=== PATIENT | male | born 1935 | race Caucasian/White ===

== ENCOUNTER 2017-03-23 20:15 | Inpatient (IN) | payer OTHER ==
--- NOTE | 2017-03-23 20:19 | EDPHY ---
HPI/HX/ROS/PE/MDM Narrative: CHIEF COMPLAINT: Altered mental status. HISTORY OF PRESENT ILLNESS: This patient is an 81 year old male with history of cognitive communication deficits and muscle weakness arriving via EMS from [facility] for evaluation of altered mental status. He has been feeling poorly for several days, but staff noted an abrupt decline in his mental status and summoned EMS. Paramedics arrived about 20 minutes following the onset of his altered mental status. Per EMS, oxygen saturation on room air was 60%. Patient has DNR paperwork present. He was recently referred to hospice care, but has not begun this yet. HPI primarily obtained via EMS report. Further HPI unobtainable due to patient presentation. REVIEW OF SYSTEMS: Unable to assess due to patient presentation. PAST MEDICAL HISTORY: 1. Cognitive communication deficit. 2. Muscle weakness 3. Dysphasia 4. Gait / mobility difficulty SOCIAL HISTORY: Lives at [facility]. Patient was admitted to [facility] on March 15. VITAL SIGNS: Reviewed by me. Axillary temperature 40. HR 114. RR 50. BP 102/64. GENERAL: Ill-appearing, general tremors, nonverbal response to basic commands, listing leftward. HEENT: Atraumatic. Eyes: No icterus, no injection. PERRL. Mouth: dry mucous membranes. No erythema or lesions. Neck: Appears to have discomfort when moving the neck. LUNGS: Tachypneic. Diffuse rhonchi. CARDIAC: Tachycardia. No rubs, murmurs or gallops. ABDOMEN: Soft, nontender, nondistended, bowel sounds normal. BACK: No CVA tenderness. EXTREMITIES: No trauma. No edema. Skin is mottled. NEURO: Patient will follow some simple commands such as squeezing fingers. No verbal response. General tremors, questionable clonus lower extremities. SKIN: Fingernail beds cyanotic bilaterally. PSYCHIATRIC: Unable to assess. Portions of this note were transcribed by a bilingual medical receptionist. I personally performed a history, physical exam, medical decision making, and confirmed accuracy of information the transcribed note. ED Course: 19:55 Met EMS on arrival. 12-LEAD EKG: Please see the full report in [facility]. My interpretation: Sinus tachycardia. ST depression in lateral leads. Axillary temperature 40. HR 114. RR 50. BP 102/64. Reviewed I-stat: sodium 153 , BUN 67, creatinine 1.9. Plan for CT head, chest x-ray, labs including CBC, chemistries, troponin, flu swab, lactic acid, Coag. Lactic acid 5.7. Severe Sepsis/Septic Shock Care Note The patient presents to the ED with pneumonia identified as an acute infection. The patient did have evidence of end-organ dysfunction and met criteria for severe sepsis. This condition was identified by myself at 2020. The patients vital signs are 102/64, 114, 40 degrees axillary, respiratory rate 44, O2 sat 80s on 6 L nasal cannula. The patient has a venous lactic acid performed within 3 hours of the identification of severe sepsis which was found to be 5.7. The patient has blood cultures drawn. Patient received no antibiotics per his MOST form. Please see the discussion below. The initial lactate was elevated. Lactic was not rechecked the as the patient is comfort care only. Please see the discussion below. The patient also met criteria for septic shock because of lactic acid of 5.7. The patient received a 30 mL/kg bolus within 3 hours. After this intervention, the patients hypotension did persist. Patient was not started on any pressors secondary to his advanced directives. Focused examination demonstrated 82/66, heart rate of 60, respiratory rate 32, diffuse rhonchi, tachycardic rate, patient's troponin is elevated at 0.057, sluggish capillary refill, cyanotic nail beds, thready pulse, skin is cool and mottled. The patient was admitted to medical-surgical bed for comfort care. 21:00 Reviewed patient's MOST form. Antibiotic therapy is not indicated, comfort measures only. We are attempting to contact the patient's daughter for additional discussion of interventions. 213: Patient's , 2 daughters, and son-in-law present to the emergency department. I held a long conversation with them, nurse Gracie was also in the room, and discussed at length the patient's condition, as well as his advance directives. We discussed the fact that he was hypotensive, becoming bradycardic, febrile, and respiratory failure, requiring significant oxygen, the pneumonia on his chest x-ray, elevated troponin in the implications of that , labs demonstrate significant dehydration, renal failure and the implications of that, as well as potential urinary tract infection. We discussed the patient 's very grave prognosis. We discussed the most form which had indicated comfort care only. Patient's is concerned that we will not be giving him antibiotics. Decision was eventually reach that the patient will be admitted to the hospital, on medical-surgical floor, with IV antibiotics. Per the patient's wishes as expressed from the family and , the patient should be do not intubate, do not resuscitate, no pressors,, and no advanced respiratory support such as BiPAP. 2200: I was notified by Gracie the nurse that the patient's family has changed their mind regarding antibiotics and requests no antibiotics. Patient's course discussed with Dr. Lopez. He will be admitted to medical -surgical bed. MDM: Differential diagnoses for the patient's symptom complex was considered including but not limited to multi lobar pneumonia, influenza, severe sepsis, septic shock, multiorgan failure, cardiac ischemia, respiratory failure, renal failure. Critical care time spent by me, Dr. Castellanos exclusively with this patient was 40 minutes, exclusive of PA time and exclusive of procedures. The organ system at risk was pulmonary, cardiac, and renal and I gave IV fluids, antibiotics, and held a long discussion with the patient's family regarding the patient's condition. Critical care time included obtaining history, performing a physical exam, bedside monitoring of interventions, collecting and interpreting tests and discussion with consultants but not including time spent performing procedures. - Data Points Imaging Results: Imaging Impressions Chest X-Ray 03/23/17 20:17 Impression: Suspect pneumonia superimposed upon airways disease. Head CT 03/23/17 20:18 Impression: 1. 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 2. Negative for hemorrhage or mass lesion. Results called and discussed with Jagruti Castellanos MD on 03/23/2017 at 21:33 Imaging: Discussed imaging studies w/ tree thinner Radiologist, I viewed and interpreted images myself Laboratory Results: Laboratory Results 03/23/17 20:00 03/23/17 20:00 03/23/17 03/23/17 03/23/17 20:25 20:25 20:25 WBC RBC Hgb Hct MCV MCH MCHC RDW Plt Count MPV Neut % (Auto) Lymph % (Auto) [place] % (Auto) Eos % (Auto) Baso % (Auto) Nucleat RBC Rel Count Absolute Neuts (auto) Absolute Lymphs (auto) Absolute Monos (auto) Absolute Eos (auto) Absolute Basos (auto) Absolute Nucleated RBC Immature Gran % Immature Gran # PT INR APTT ABG Lactic Acid Cancelled VBG Lactic Acid 5.7 mmol/L H mmol/L (0.7-2.1) Sodium Potassium Chloride Carbon Dioxide Anion Gap BUN Creatinine Estimated GFR Glucose Calcium Phosphorus Total Bilirubin Troponin I Urine Color Urine Appearance Urine pH Ur Specific [place] Urine Protein Urine Ketones Urine Blood Urine Nitrate Urine Bilirubin Urine Urobilinogen Ur Leukocyte Esterase Urine RBC Urine WBC Ur Epithelial Cells Urine Bacteria Urine Mucus Urine Glucose Nasal Influenza A PCR NEGATIVE FOR FLU A (NEGATIVE) Nasal Influenza B PCR NEGATIVE FOR FLU B (NEGATIVE) 03/23/17 03/23/17 03/23/17 20:05 20:00 20:00 WBC RBC Hgb Hct MCV MCH MCHC RDW Plt Count MPV Neut % (Auto) Lymph % (Auto) [place] % (Auto) Eos % (Auto) Baso % (Auto) Nucleat RBC Rel Count Absolute Neuts (auto) Absolute Lymphs (auto) Absolute Monos (auto) Absolute Eos (auto) Absolute Basos (auto) Absolute Nucleated RBC Immature Gran % Immature Gran # PT 16.6 SEC H SEC (12.0-15.0) INR 1.32 H (0.83-1.16) APTT 24.6 SEC SEC (23.0-38.0) ABG Lactic Acid VBG Lactic Acid Sodium 157 mEq/L H mEq/L (135-145) Potassium 5.1 mEq/L mEq/L (3.5-5.2) Chloride 113 mEq/L H mEq/L (97-110) Carbon Dioxide 24 mEq/l mEq/l (22-31) Anion Gap 20 mEq/L H mEq/L (8-16) BUN 53 mg/dL H mg/dL (7-23) Creatinine 1.9 mg/dL H mg/dL (0.7-1.3) Estimated GFR 34 Glucose 136 mg/dL H mg/dL (70-100) Calcium 10.7 mg/dL H mg/dL (8.5-10.4) Phosphorus 3.6 mg/dL mg/dL (2.5-4.5) Total Bilirubin 0.5 mg/dL mg/dL (0.1-1.4) Troponin I 0.057 ng/mL H ng/mL (0.000-0.034) Urine Color YELLOW Urine Appearance MODERATELY TURBID Urine pH 5.0 (5.0-7.5) Ur Specific [place] 1.017 (1.002-1.030) Urine Protein NEGATIVE (NEGATIVE) Urine Ketones NEGATIVE (NEGATIVE) Urine Blood 2+ H (NEGATIVE) Urine Nitrate NEGATIVE (NEGATIVE) Urine Bilirubin NEGATIVE (NEGATIVE) Urine Urobilinogen NEGATIVE EU EU (0.2-1.0) Ur Leukocyte Esterase TRACE H (NEGATIVE) Urine RBC 3-5 /hpf H /hpf (0-3) Urine WBC 10-15 /hpf H /hpf (0-3) Ur Epithelial Cells TRACE /lpf /lpf (NONE-1+) Urine Bacteria 2+ /hpf H /hpf (NONE SEEN) Urine Mucus 1+ /lpf /lpf (NONE-1+) Urine Glucose NEGATIVE (NEGATIVE) Nasal Influenza A PCR Nasal Influenza B PCR 03/23/17 20:00 WBC 15.94 10^3/uL H 10^3/uL (3.80-9.50) RBC 4.20 10^6/uL L 10^6/uL (4.40-6.38) Hgb 13.9 g/dL g/dL (13.7-17.5) Hct 42.6 % % (40.0-51.0) MCV 101.4 fL H fL (81.5-99.8) MCH 33.1 pg pg (27.9-34.1) MCHC 32.6 g/dL g/dL (32.4-36.7) RDW 12.7 % % (11.5-15.2) Plt Count 727 10^3/uL H 10^3/uL (150-400) MPV 9.5 fL fL (8.7-11.7) Neut % (Auto) 90.6 % H % (39.3-74.2) Lymph % (Auto) 4.5 % L % (15.0-45.0) [place] % (Auto) 4.0 % L % (4.5-13.0) Eos % (Auto) 0.0 % L % (0.6-7.6) Baso % (Auto) 0.3 % % (0.3-1.7) Nucleat RBC Rel Count 0.0 % % (0.0-0.2) Absolute Neuts (auto) 14.43 10^3/uL H 10^3/uL (1.70-6.50) Absolute Lymphs (auto) 0.72 10^3/uL L 10^3/uL (1.00-3.00) Absolute Monos (auto) 0.64 10^3/uL 10^3/uL (0.30-0.80) Absolute Eos (auto) 0.00 10^3/uL L 10^3/uL (0.03-0.40) Absolute Basos (auto) 0.05 10^3/uL 10^3/uL (0.02-0.10) Absolute Nucleated RBC 0.00 10^3/uL 10^3/uL (0-0.01) Immature Gran % 0.6 % % (0.0-1.1) Immature Gran # 0.10 10^3/uL 10^3/uL (0.00-0.10) PT INR APTT ABG Lactic Acid VBG Lactic Acid Sodium Potassium Chloride Carbon Dioxide Anion Gap BUN Creatinine Estimated GFR Glucose Calcium Phosphorus Total Bilirubin Troponin I Urine Color Urine Appearance Urine pH Ur Specific [place] Urine Protein Urine Ketones Urine Blood Urine Nitrate Urine Bilirubin Urine Urobilinogen Ur Leukocyte Esterase Urine RBC Urine WBC Ur Epithelial Cells Urine Bacteria Urine Mucus Urine Glucose Nasal Influenza A PCR Nasal Influenza B PCR Medications Given: Discontinued Medications Ertapenem (Invanz) 1 gm IVP EDNOW ONE PRN Reason: Protocol Stop: 03/23/17 20:40 Last Admin: 03/23/17 22:30 Dose: Not Given Sodium Chloride (Ns) 1,900 mls @ 3,800 mls/hr 30 ml/kg infuse over 30 min ( 1900 ml) IV EDNOW ONE PRN Reason: Protocol Stop: 03/23/17 20:56 Last Admin: 03/23/17 20:37 Dose: 1,900 mls Levofloxacin/Dextrose (Levaquin 750 Mg (Premix)) 150 mls @ 100 mls/hr IV EDNOW ONE PRN Reason: Protocol Stop: 03/23/17 22:08 Last Admin: 03/23/17 22:30 Dose: Not Given General Initial Vital Signs: Initial Vital Signs Temperature (C) 40.0 C H 03/23/17 20:17 Heart Rate 115 H 03/23/17 20:17 Respiratory Rate 48 H 03/23/17 20:17 Blood Pressure 102/64 03/23/17 20:17 O2 Sat (%) 95 03/23/17 20:17 O2 Delivery Mode Non-Rebreather Mask O2 (L/minute) 15 Allergies/Adverse Reactions: No Known Allergies Allergy (Unverified 03/23/17 20:28) Home Medications: Medication Instructions Recorded Aspirin [Aspirin 81mg (*)] 81 mg PO DAILY 03/23/17 Cholecalciferol Vit D3 [Vitamin D3 2,000 units PO DAILY 03/23/17 (*)] Haloperidol [Haldol 1 MG (*)] 1 mg PO Q12H PRN 03/23/17 Melatonin [Melatonin 3 MG (*)] 3 mg PO HS 03/23/17 Counce-3 Fatty Acids [Fish Oil 1000 1,000 mg PO DAILY 03/23/17 mg (*)] QUEtiapine FUMARATE [Seroquel 25 25 mg PO HS 03/23/17 mg (*)] Sennosides [Senokot] 1 tab PO DAILY PRN 03/23/17 Departure - Departure Disposition: [facility] In[facility] Acute Clinical Impression: Cardiac ischemia, Severe sepsis Respiratory failure Qualifiers: Chronicity: acute Respiratory failure complication: hypoxia Qualified Code(s): J96.01 - Acute respiratory failure with hypoxia Renal failure Qualifiers: Renal failure chronicity: acute Acute renal failure type: unspecified Qualified Code(s): N17.9 - Acute kidney failure, unspecified Condition: Critical Report Scribed for: Jagruti Castellanos Report Scribed by: Jessika Greenfield Date of Report: 03/23/17 Time of Report: 20:21
[2017-03-23] MEDS ORDERED: NS 1,900 ML IV ONE (20:27)
[2017-03-23 20:33] LABS: PLATELET COUNT 727 10^3/uL (150-400)
[2017-03-23] MEDS ORDERED: ERTAPENEM 1 GM VIAL IVP ONE (20:39)
[2017-03-23 20:42] LABS: INR 1.32 (0.83-1.16); PROTIME(PATIENT) 16.6 SEC (12.0-15.0)
[2017-03-23] MEDS ORDERED: ONDANSETRON DISINTEGRATING 4 MG TAB PO PRN (22:17)
[2017-03-23] MEDS ORDERED: ALBUTEROL 3 ML DEYVIAL IH PRN (22:17)
[2017-03-23] MEDS ORDERED: ONDANSETRON 4 MG/2 ML VIAL IVP PRN (22:17)
[2017-03-23] MEDS ORDERED: NS 1,000 ML IV SCH (22:30)
[2017-03-23] MEDS ORDERED: PIPERACILLIN/TAZO 3.375 GM/DEX 50 ML IV ONE (23:30)
[2017-03-24] MEDS ORDERED: VANCOMYCIN HCL/NORMAL SALINE 250 ML IV ONE
--- NOTE | 2017-03-24 02:03 | PDGENHP ---
History and Physical - Chief Complaint Lethargy - History of Present Illness 81 yo M w/ hx of dementia presents from [facility] with lethargy. Patient was in usual state of health until about 2 weeks ago when he was admitted to [facility] for evaluation of weakness. Per family that work-up was mostly unremarkable aside from diagnosis of dementia. He was discharged to [facility] for further care. Since about 1 week ago at [facility] patient began to show lethargy. Then on day prior to admission he also developed worsening confusion and cough. Upon arrival in the ED work-up was notable for hypoxia, hypotension, and laboratory evidence of severe sepsis, most likely 2/2 pneumonia. Patient has DNR , comfort measure wishes only. After long discussion with family it was decided to pursue care with antibiotics and fluids only and forego any escalation of care from that point (BIPAP, pressors, intubation, etc.). History Information - Allergies/Home Medication List Allergies/Adverse Reactions: No Known Allergies Allergy (Unverified 03/23/17 20:28) Home Medications: Aspirin [Aspirin 81mg (*)] 81 mg PO DAILY 03/23/17 [Last Taken 03/23/17] Cholecalciferol Vit D3 [Vitamin D3 (*)] 2,000 units PO DAILY 03/23/17 [Last Taken 03/23/17] Haloperidol [Haldol 1 MG (*)] 1 mg PO Q12H PRN 03/23/17 [Last Taken Unknown] Melatonin [Melatonin 3 MG (*)] 3 mg PO HS 03/23/17 [Last Taken 03/22/17] [place]-3 Fatty Acids [Fish Oil 1000 mg (*)] 1,000 mg PO DAILY 03/23/17 [Last Taken 03/23/17] QUEtiapine FUMARATE [Seroquel 25 mg (*)] 25 mg PO HS 03/23/17 [Last Taken Unknown] Sennosides [Senokot] 1 tab PO DAILY PRN 03/23/17 [Last Taken Unknown] I have personally reviewed and updated: family history, medical history - Past Medical History dementia - Family History Positive for: cancer - Social History Smoking Status: Former smoker Review of Systems Review of Systems: Unable to obtain due to mental status Physical Exam Physical Exam: Temp Pulse Resp BP Pulse Ox 37.4 C 63 20 89/56 L 94 03/24/17 00:04 03/24/17 00:04 03/24/17 00:04 03/24/17 00:04 03/24/17 00:04 O2 (L/minute) 15 Constitutional: not in pain, chronically ill appearing Eyes: PERRL, EOMI Ears, Nose, Mouth, Throat: no oral mucosal ulcers, dry mucous membranes Cardiovascular: regular rate and rhythym, systolic murmur Respiratory: reduced air movement, inspiratory crackles Gastrointestinal: normoactive bowel sounds, soft, non-tender abdomen Skin: warm, normal color Neurologic: CN II-XII Intact, other (A&Ox0) Psychiatric: encephalopathic Lab Data & Imaging Review 03/23/17 20:00 03/23/17 20:00 WBC 15.94 10^3/uL (3.80-9.50) H 03/23/17 20:00 RBC 4.20 10^6/uL (4.40-6.38) L 03/23/17 20:00 Hgb 13.9 g/dL (13.7-17.5) 03/23/17 20:00 Hct 42.6 % (40.0-51.0) 03/23/17 20:00 MCV 101.4 fL (81.5-99.8) H 03/23/17 20:00 MCH 33.1 pg (27.9-34.1) 03/23/17 20:00 MCHC 32.6 g/dL (32.4-36.7) 03/23/17 20:00 RDW 12.7 % (11.5-15.2) 03/23/17 20:00 Plt Count 727 10^3/uL (150-400) H 03/23/17 20:00 MPV 9.5 fL (8.7-11.7) 03/23/17 20:00 Neut % (Auto) 90.6 % (39.3-74.2) H 03/23/17 20:00 Lymph % (Auto) 4.5 % (15.0-45.0) L 03/23/17 20:00 [place] % (Auto) 4.0 % (4.5-13.0) L 03/23/17 20:00 Eos % (Auto) 0.0 % (0.6-7.6) L 03/23/17 20:00 Baso % (Auto) 0.3 % (0.3-1.7) 03/23/17 20:00 Nucleat RBC Rel Count 0.0 % (0.0-0.2) 03/23/17 20:00 Absolute Neuts (auto) 14.43 10^3/uL (1.70-6.50) H 03/23/17 20:00 Absolute Lymphs (auto) 0.72 10^3/uL (1.00-3.00) L 03/23/17 20:00 Absolute Monos (auto) 0.64 10^3/uL (0.30-0.80) 03/23/17 20:00 Absolute Eos (auto) 0.00 10^3/uL (0.03-0.40) L 03/23/17 20:00 Absolute Basos (auto) 0.05 10^3/uL (0.02-0.10) 03/23/17 20:00 Absolute Nucleated RBC 0.00 10^3/uL (0-0.01) 03/23/17 20:00 Immature Gran % 0.6 % (0.0-1.1) 03/23/17 20:00 Immature Gran # 0.10 10^3/uL (0.00-0.10) 03/23/17 20:00 PT 16.6 SEC (12.0-15.0) H 03/23/17 20:00 INR 1.32 (0.83-1.16) H 03/23/17 20:00 APTT 24.6 SEC (23.0-38.0) 03/23/17 20:00 ABG Lactic Acid Cancelled 03/23/17 20:25 VBG Lactic Acid 5.7 mmol/L (0.7-2.1) H 03/23/17 20:25 Sodium 157 mEq/L (135-145) H 03/23/17 20:00 Potassium 5.1 mEq/L (3.5-5.2) 03/23/17 20:00 Chloride 113 mEq/L (97-110) H 03/23/17 20:00 Carbon Dioxide 24 mEq/l (22-31) 03/23/17 20:00 Anion Gap 20 mEq/L (8-16) H 03/23/17 20:00 BUN 53 mg/dL (7-23) H 03/23/17 20:00 Creatinine 1.9 mg/dL (0.7-1.3) H 03/23/17 20:00 Estimated GFR 34 03/23/17 20:00 Glucose 136 mg/dL (70-100) H 03/23/17 20:00 Calcium 10.7 mg/dL (8.5-10.4) H 03/23/17 20:00 Phosphorus 3.6 mg/dL (2.5-4.5) 03/23/17 20:00 Total Bilirubin 0.5 mg/dL (0.1-1.4) 03/23/17 20:00 Troponin I 0.057 ng/mL (0.000-0.034) H 03/23/17 20:00 Urine Color YELLOW 03/23/17 20:05 Urine Appearance MODERATELY TURBID 03/23/17 20:05 Urine pH 5.0 (5.0-7.5) 03/23/17 20:05 Ur Specific [place] 1.017 (1.002-1.030) 03/23/17 20:05 Urine Protein NEGATIVE (NEGATIVE) 03/23/17 20: Urine Ketones NEGATIVE (NEGATIVE) 03/23/17 20:05 Urine Blood 2+ (NEGATIVE) H 03/23/17 20:05 Urine Nitrate NEGATIVE (NEGATIVE) 03/23/17 20:05 Urine Bilirubin NEGATIVE (NEGATIVE) 03/23/17 20:05 Urine Urobilinogen NEGATIVE EU (0.2-1.0) 03/23/17 20:05 Ur Leukocyte Esterase TRACE (NEGATIVE) H 03/23/17 20:05 Urine RBC 3-5 /hpf (0-3) H 03/23/17 20:05 Urine WBC 10-15 /hpf (0-3) H 03/23/17 20:05 Ur Epithelial Cells TRACE /lpf (NONE-1+) 03/23/17 20:05 Urine Bacteria 2+ /hpf (NONE SEEN) H 03/23/17 20:05 Urine Mucus 1+ /lpf (NONE-1+) 03/23/17 20:05 Urine Glucose NEGATIVE (NEGATIVE) 03/23/17 20:05 Nasal Influenza A PCR NEGATIVE FOR FLU A (NEGATIVE) 03/23/17 20:25 Nasal Influenza B PCR NEGATIVE FOR FLU B (NEGATIVE) 03/23/17 20:25 Imaging Review: Imaging Impressions Chest X-Ray 03/23/17 20:17 Impression: Suspect pneumonia superimposed upon airways disease. Head CT 03/23/17 20:18 Impression: 1. 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 2. Negative for hemorrhage or mass lesion. Results called and discussed with Jagruti Castellanos MD on 03/23/2017 at 21:33 Assessment & Plan Assessment: 81 yo M w/ dementia and DNR wishes presents with severe sepsis most likely 2/2 pneumonia. Plan: 1. Severe sepsis 2/2 pneumonia - Sepsis criteria present on admission per WBC, tachypnea, and T per geriatric standard. CXR notable for pneumonia in conjunction with cough and severe hypoxia. Lactate 5.7. Patient has DNR, comfort measures only wishes. After long discussion with family it was decided to pursue care with antibiotics and fluids only and forego any escalation of care from that point (BIPAP, pressors, intubation, etc.). Family is aware patient may not survive for long noting severity of illness. - Vanc/Zosyn for HCAP coverage noting recent hospitalization - S/p initial fluid bolus per sepsis protocol, continue w/ bolus PRN and mIVF - Blood cultures ordered 2. AHRF - 2/2 above, will not escalate to NIPPV or intubation per family wishes. Currently requiring 10 L via non-rebreather. 3. Acute encephalopathy - Most likely 2/2 above. Patient A&O x 0 on my evaluation. 4. MILAD - Unknown baseline, most likely 2/2 sepsis and hypovolemia. Monitor BMP after rehydration. 5. Hypernatremia - Poor PO intake and dehydration present. Will prioritize volume status over water balance noting severe sepsis and severity of illness. Trend BMP. 6. Elevated troponin - Suspect myocardial demand, will not trend as family does not wish to intervene. Diet - Regular pending swallow screen Ppx - SQH Code - DNR, will not escalate care beyond fluids and antibiotics Dispo - Admit to inpatient status for treatment of severe sepsis
[2017-03-24] MEDS: PIPERACILLIN/TAZO 3.375 GM/DEX 50 ML IV SCH ×3 (05:17→17:52)
[2017-03-24] MEDS ORDERED: HEPARIN 5,000 UNIT/0.5 ML SYR SC SCH (06:00)
[2017-03-24 06:05] LABS: PLATELET COUNT 522 10^3/uL (150-400)
[2017-03-24] MEDS ORDERED: D5W 1/2 NS 1,000 ML IV SCH (07:45)
[2017-03-24] MEDS ORDERED: SENNOSIDES 1 TAB PO PRN (11:19)
--- NOTE | 2017-03-24 11:36 | HOSPPROG ---
Hospitalist Progress Note Assessment/Plan: 81 yo M w dementia admitted w sepsis, L lingular pneumonia and now hypernatremia hypernatremia: present on admit, worsened by saline resuscitation. this was necessary given sepsis 1. alert but confused and unknown baseline, although dementia noted 2. start 1/2 ns at 75 and follow Na q 4 sepsis: source is likely lungs agree w vanc zosyn bp stabilized repeat lactate pneumonia: treat as HCAP abx as above AHRF: 2/2 pneumonia: wean o2 MILAD: pre renal resusctitated and follow heel wounds: present on admit wound care seeing proph: lmwh dispo: inpt code: dnr Subjective: cxr w L lingular pneumonia (interp by me) Objective: Vital Signs Temp Pulse Resp BP Pulse Ox 36.8 C 54 L 18 91/51 L 96 03/24/17 07:33 03/24/17 10:06 03/24/17 10:56 03/24/17 10:06 03/24/17 10:56 Laboratory Results 03/24/17 05:45 03/24/17 05:45 03/23/17 03/24/17 03/25/17 05:59 05:59 05:59 Intake Total 3750 Output Total 300 175 Balance 3450 -175 PT 16.6 SEC (12.0-15.0) H 03/23/17 20:00 INR 1.32 (0.83-1.16) H 03/23/17 20:00 - Physical Exam Constitutional: no apparent distress, appears nourished Eyes: PERRL, anicteric sclera Ears, Nose, Mouth, Throat: moist mucous membranes, hearing normal Cardiovascular: regular rate and rhythym, no murmur, rub, or gallop Respiratory: no respiratory distress, other (good air movement, crackles L lung base) Gastrointestinal: normoactive bowel sounds, soft, non-tender abdomen Genitourinary: No rojas in urethra Skin: warm, normal color, other (b/l heel skin breakdown R> L. POA) Musculoskeletal: full muscle strength Neurologic: other (alert but confused), No AAOx3 ICD10 Worksheet Patient Problems: Problems Problem Status Onset Cardiac ischemia Acute Renal failure Acute Respiratory failure Acute Severe sepsis Acute
[2017-03-24] MEDS: 1/2 NS 1,000 ML IV SCH (12:03)
--- NOTE | 2017-03-24 12:04 | CPEKG ---
Heart Rate: 103 RR Interval: 583 P-R Interval: 156 QRSD Interval: 110 QT Interval: 364 QTC Interval: 477 P [place]: 86 QRS [place]: 43 T Wave [place]: 96 EKG Severity - ABNORMAL ECG - EKG Impression: SINUS TACHYCARDIA EKG Impression: NONSPECIFIC INTRAVENTRICULAR CONDUCTION DELAY EKG Impression: ST DEPRESSION, CONSIDER ISCHEMIA, LAT LEADS Electronically Signed By: Pollo Ronquillo 24-Mar-2017 13:06:09
--- NOTE | 2017-03-24 12:41 | PDMN ---
Medical Necessity Medical necessity: est los>2mn for severe sepsis r/t PNA, w/elevated wbc, tachypnea, T 40, and severe hypoxia, acute heart failure, acute encephalopathy, MILAD, hypernatremia, and elevated troponin; admit for IVF, IV abx, O2@ 10L/NRB; comorbid dementia; per order and H&P 03/23/17
--- NOTE | 2017-03-24 12:45 | WOCRNPDOC ---
MILI Advanced Assessment Note - Skin Integrity Problem, Advanced Assess Left Heel Pressure Injury Dressing Type: Open to Air Other Dressing Type: Heel boots in place Integumentary Issue Intervention: Dressing Applied Tena Wound Tissue: Intact Wound Bed Color: Purple Wound Bed Constitution: Intact Serous Filled Blister Wound Edges: Well Defined Site Measurement - Head-to-Toe Length X Width X Depth (cm): 4x2.6xDTI Pressure Injury Stage: Deep Tissue Injury (DTI) Pressure Injury Present on Admit: Yes (MD aware) Skin Integrity Problem Comment: Patient with intact serous filled blister. Wound bed appears purple indicting presence of DTI. Have asked nursing to inform wound care if/when blister opens. For now, will continue to monitor how this wound evolves. Wound care will round again next week. Left Lateral Distal Foot Pressure Injury Dressing Type: Open to Air Tena Wound Tissue: Intact Wound Bed Color: Uriah Wound Bed Constitution: Intact Serous Filled Blister Wound Edges: Well Defined Site Measurement - Head-to-Toe Length X Width X Depth (cm): 3x1.3xblister Pressure Injury Stage: Stage 2 Pressure Injury Present on Admit: Yes (MD aware) Skin Integrity Problem Comment: Patient with small, intact serous filled blister. Wound bed appears pink indicting this is likely a stage 2 pressure injury. Have asked nursing to inform wound care if/when blister opens. For now, will continue to monitor how this wound evolves. Wound care will round again next week. Left Lateral Foot Pressure Injury Dressing Type: Open to Air Wound Bed Color: Uriah, Yellow Wound Bed Constitution: Intact Serous Filled Blister Wound Edges: Well Defined Site Measurement - Head-to-Toe Length X Width X Depth (cm): 1.9x2dvynbnqo Pressure Injury Stage: Stage 2 Pressure Injury Present on Admit: Yes Skin Integrity Problem Comment: Patient with small, intact serous filled blister. The darkened central portion of this wound indicates that it is a DTI. Will continue to monitor how this wound evolves. Wound care will round again next week. Left Lateral Ankle Pressure Injury Dressing Type: Open to Air Tena Wound Tissue: Intact Wound Bed Color: Purple, Red Wound Edges: Well Defined Site Measurement - Head-to-Toe Length X Width X Depth (cm): 2x1.4xDTI Pressure Injury Stage: Deep Tissue Injury (DTI) Pressure Injury Present on Admit: Yes (MD aware) Right Heel Pressure Injury Dressing Type: Open to Air Other Dressing Type: Heel boots in place Tena Wound Tissue: Intact Wound Bed Color: Purple Wound Bed Constitution: Intact Serous Filled Blister Wound Edges: Well Defined Site Measurement - Head-to-Toe Length X Width X Depth (cm): 9x5.5xDTI Pressure Injury Stage: Deep Tissue Injury (DTI) Pressure Injury Present on Admit: Yes (MD aware) Skin Integrity Problem Comment: Heel boots removed with assist from CHENCHO Bray ( [facility]). Patient with large, intact serous filled blister. Wound bed appears purple indicting presence of DTI. Have asked nursing to inform wound care if/ when blister opens. For now, will continue to monitor how this wound evolves. Wound care will round again next week.
--- NOTE | 2017-03-24 15:28 | ASMTCMCOM ---
CM Note CM Note Notes: Pt admitted from [facility] and will return there when ready for DC. Date Signed: 03/24/2017 03:27 PM Electronically Signed By:Leah Ramos LCSW
[2017-03-24] MEDS ORDERED: QUEtiapine FUMARATE 25 MG TAB PO SCH (21:00)
[2017-03-24] MEDS: HALOPERIDOL 1 MG TAB PO PRN (21:22)
[2017-03-25] MEDS: PIPERACILLIN/TAZO 3.375 GM/DEX 50 ML IV SCH ×4 (00:03→22:03)
[2017-03-25] MEDS ORDERED: VANCOMYCIN 750 MG in NS 150 ML IV SCH ×2 (01:00→08:30)
[2017-03-25] MEDS ORDERED: VANCOMYCIN 750 MG in D5W 150 ML IV SCH ×2 (01:00→08:30)
[2017-03-25] MEDS: 1/2 NS 1,000 ML IV SCH (06:24)
[2017-03-25] MEDS ORDERED: D5W 1,000 ML IV SCH ×2 (08:45→14:00)
[2017-03-25] MEDS: ENOXAPARIN 30 MG/0.3 ML SYR SC SCH (09:18)
--- NOTE | 2017-03-25 15:35 | HOSPPROG ---
Hospitalist Progress Note Assessment/Plan: 81 yo M w dementia admitted w sepsis, L lingular pneumonia and now hypernatremia hypernatremia: present on admit, worsened by saline resuscitation. this was necessary given sepsis 1. alert but confused and unknown baseline, although dementia noted suspect he has delirium as well given continued rise despite hypotonic fluid, renal consult obtained; appreciate input sepsis: source is likely lungs continue zosyn, dc vanc bp stabilized repeat lactate normalized pneumonia: treat as HCAP abx as above AHRF: 2/2 pneumonia: wean o2 MILAD: pre renal resusctitated and follow heel wounds: present on admit wound care seeing proph: lmwh dispo: inpt code: dnr Subjective: case d/w dr meng. Na continued to rise despite initiation of d5w Objective: Vital Signs Temp Pulse Resp BP Pulse Ox 36.6 C 58 L 16 113/55 L 94 03/25/17 12:00 03/25/17 12:00 03/25/17 12:00 03/25/17 12:00 03/25/17 12:00 Laboratory Results 03/24/17 05:45 03/24/17 03/25/17 03/26/17 05:59 05:59 05:59 Intake Total 3750 2231 Output Total 300 675 750 Balance 3450 1556 -750 PT 16.6 SEC (12.0-15.0) H 03/23/17 20:00 INR 1.32 (0.83-1.16) H 03/23/17 20:00 - Physical Exam Constitutional: no apparent distress, appears nourished Eyes: PERRL, anicteric sclera Ears, Nose, Mouth, Throat: moist mucous membranes, hearing normal Cardiovascular: regular rate and rhythym, no murmur, rub, or gallop Respiratory: no respiratory distress, rhonchi Gastrointestinal: normoactive bowel sounds, soft, non-tender abdomen Genitourinary: no bladder fullness, No rojas in urethra Skin: warm, normal color Neurologic: No AAOx3 Psychiatric: No interacting appropriately ICD10 Worksheet Patient Problems: Problems Problem Status Onset Cardiac ischemia Acute Renal failure Acute Respiratory failure Acute Severe sepsis Acute
[2017-03-25] MEDS: HALOPERIDOL 1 MG TAB PO PRN (16:10)
[2017-03-25] MEDS: ACETAMINOPHEN 325 MG TAB PO PRN (20:23)
--- NOTE | 2017-03-25 21:47 | GCON ---
[f rep st] CONSULTATION NEPHROLOGY CONSULTATION DATE OF CONSULTATION: 03/25/2017 REASON FOR CONSULTATION: Refractory hyponatremia, acute kidney injury. HISTORY OF PRESENT ILLNESS: This is a pleasant 81-year-old male with a past medical history signific ant for reactive airway disease, and peptic ulcer disease, who now presents with hyponatremia and acu te kidney injury. At this point, the patient has pretty significant dementia versus delirium, and he cannot provide an accurate history. History is obtained from the medical record, as well as the fam lizandro who is present at bedside. The patient had a recent admission to [facility] relating to weakness. During that admissio n, it was suggested that the patient was developing dementia. He was discharged to [facility]. H e became more lethargic, and then was admitted to [facility]. Since admission, the patient has had sepsis syndrome, acute kidney injury, and a diagnosis of pneumon ia. The patient's laboratory studies have been remarkable for a presenting sodium of 157, and a crea tinine of 1.9. Currently, his creatinine has improved down to 1.5, but his sodium level has continue d to be elevated, and is currently 162. He is normotensive, although, previously was hypotensive. H is current urine output shows that he is nonoliguric, but his urine output is not markedly elevated. The patient is on antibiotics for his potential pneumonia. The patient has received some D5W and some D5 half normal saline. In spite of this, his sodium is no t correcting and has actually gotten somewhat worse. His urinalysis has shown some white cells and r ed cells in a catheterized specimen. As related to the above findings, we are asked by Dr. Noonan to assist the patient's renal diagnosis and management. PAST MEDICAL HISTORY: 1. Reactive airway disease. 2. Peptic ulcer disease. SURGICAL HISTORY: None. CURRENT MEDICATIONS: Tylenol p.r.n., albuterol as needed, D5W 75 mL/hour, enoxaparin 30 mg subcu anand ly, Haldol as needed, Zosyn 3.375 mg q.6 hours, senna as prescribed, vancomycin as prescribed. FAMILY HISTORY: Noncontributory. SOCIAL HISTORY: The patient was born in [place], but has lived in [place] most of his life. He is m arried and has supportive family at bedside. 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 He on ly smoked a very short period of time. He does not drink alcohol. REVIEW OF SYSTEMS: This is difficult to obtain, and I am not sure it is reliable. He is denying any significant symptoms at the present time, including no shortness of breath, chest pain, or abdominal pain. He denies feeling thirsty in spite of a sodium of 162. PHYSICAL EXAMINATION: GENERAL: At time of exam, the patient is awake and alert. He is disoriented. VITAL SIGNS: Temperature 36.6, pulse 58, blood pressure 113/55. HEENT: Eyes: Sclerae are clear. Oropharynx clear. NECK: No jugular venous distention, lymphadenopathy, or thyromegaly. LUNGS: C lear to auscultation bilaterally. CARDIOVASCULAR: Regular rate and rhythm. No gallops or rubs. AB DOMEN: Soft and nontender. : Jacobo catheter in place. RECTAL: Deferred. EXTREMITIES: Bilater al heel guards in place. He has no lower extremity edema that I can detect. NEURO: No focal findin gs, but the patient is disoriented. LABORATORY STUDIES: White count 13.6, hematocrit 36.8, platelets 522. Sodium 162, potassium 4.1, bi carb 19, creatinine 1.5. IMPRESSION AND PLAN: 1. Hyponatremia. The patient has severe hyponatremia that has not corrected. Initially, he was lik luis alberto total body sodium depleted, with a relatively greater water deficit. I currently calculate his w ater deficit at approximately 4.8 L. At present, we have not had urine osmolality studies. For now, I will order urine chemistries. I do believe that he appears relatively volume depleted, and we grant l not add further sodium to his IV fluids. I will increase his D5W to 125 mL/hour, and we will check labs every 3 hours. I am concerned that he may develop some hyperglycemia that is going to create a n osmotic diuresis and make it more difficult to correct his water deficit. Based on initial laborat ory study returns, as well as his urine studies, we will determine whether to change him to D2.5W. I will place him on a limited carbohydrate diet. 2. Acute kidney injury. The patient's creatinine is slowly improving. I do not have a baseline, bu t he does not have chronic kidney disease in his medical history. 3. Pneumonia. The patient is on Zosyn. I will dose adjust for his GFR. PLAN OF CARE: I did review with the family that the patient does have a poor prognosis relating to h is lack of thirst and dementia. They appreciate this, and understand that this needs to factor into decision making. At present, they wish to continue with medical therapy and supportive care. It is hoped that with some improvement of the serum sodium, or potentially medications for his dementia, he may regain his thirst mechanism. At this point, no movement will be made toward a feeding tube. Thank you for allowing us to participate in this gentleman's care. We will continue to follow him cl osely with you. /[id number]/MODL
[2017-03-26] MEDS: HALOPERIDOL 1 MG TAB PO PRN (02:57)
[2017-03-26 03:50] LABS: PLATELET COUNT 497 10^3/uL (150-400)
[2017-03-26] MEDS ORDERED: D5W 1,000 ML IV SCH (05:05)
[2017-03-26] MEDS: PIPERACILLIN/TAZO 3.375 GM/DEX 50 ML IV SCH ×3 (05:16→21:16)
--- NOTE | 2017-03-26 08:44 | SOAPPROG ---
SOAP Progress Note Assessment/Plan: Assessment: 1. Hypernatremia Patient likely intially presented with a total body sodium deficit, accompanied by an even greater water deficit. He appears to have been adequately volume resuscitated, and as of yesterday, his water deficit was near 5L. This could be corrected safely over 3 days, to get to a sodium level of 140. His Uosm were near 550. This is not a strong water conservation response, but he does not appear to be having an osmotic diuresis, and he is not having an overtly hypotonic urine. Looking at his Urine volume the last 24 hours, and his Urine electrolytes, he is excreting about 900ml of electrolyte free water daily. He likely has further insensible losses of another 800ml daily. If given D5W at 150ml/hour, he should be on target to reach 140 in about 72 hours. I have increased his to 175 at present. I cannot explain his rise to 165 last night, unless he wasn't receiving his full volume of IVF prescribed. He now appears to be decreasing. Will continue at current rate and follow closely. I will discuss PICC line with team. 2. Plan of care As per my consultation. His hypernatremia and age carry a poor prognosis. It is reasonable to reassess when his Na level is better. Family also requests pharmacologic therapy for dementia. Plan: 03/26/17 08:35 Subjective: Disoriented Objective: Vital Signs Temp Pulse Resp BP Pulse Ox 36.8 C 59 L 18 109/61 98 03/26/17 03:13 03/26/17 03:13 03/26/17 03:13 03/26/17 03:13 03/26/17 03:13 Laboratory Results 03/26/17 03:00 03/26/17 06:45 03/25/17 03/26/17 03/27/17 05:59 05:59 05:59 Intake Total 2231 730 1275 Output Total 675 1400 Balance 1556 -670 1275 PT 16.6 SEC (12.0-15.0) H 03/23/17 20:00 INR 1.32 (0.83-1.16) H 03/23/17 20:00 Physical Exam - Physical Exam General Appearance: no apparent distress Respiratory: lungs clear Cardiac/Chest: regular rate, rhythm Male Genitalia: other (rojas) Extremities: normal inspection Neuro/Psych: cognition abnormalities, disoriented to person, disoriented to place, disoriented to time ICD10 Worksheet Patient Problems: Problems Problem Status Onset Cardiac ischemia Acute Renal failure Acute Respiratory failure Acute Severe sepsis Acute
[2017-03-26] MEDS ORDERED: D5W 1/4 NS 1,000 ML IV SCH (09:00)
--- NOTE | 2017-03-26 09:00 | SOAPPROG ---
SOAP Progress Note Assessment/Plan: Assessment: Addendum Pt's BP has been lower, and Cr remains 1.5. Will give some NaCL along with water. D5 1/4NS at 200ml/hour should still give total of 3600ml water/day. Will prescribe this. Objective: Vital Signs Temp Pulse Resp BP Pulse Ox 36.8 C 59 L 18 109/61 98 03/26/17 03:13 03/26/17 03:13 03/26/17 03:13 03/26/17 03:13 03/26/17 03:13 Laboratory Results 03/26/17 03:00 03/26/17 06:45 03/25/17 03/26/17 03/27/17 05:59 05:59 05:59 Intake Total 2231 730 1275 Output Total 675 1400 Balance 1556 -670 1275 PT 16.6 SEC (12.0-15.0) H 03/23/17 20:00 INR 1.32 (0.83-1.16) H 03/23/17 20:00 ICD10 Worksheet Patient Problems: Problems Problem Status Onset Cardiac ischemia Acute Renal failure Acute Respiratory failure Acute Severe sepsis Acute
[2017-03-26] MEDS ORDERED: POTASSIUM CL 20 MEQ TAB PO ONE (09:15)
[2017-03-26] MEDS: ENOXAPARIN 30 MG/0.3 ML SYR SC SCH (10:07)
--- NOTE | 2017-03-26 13:32 | HOSPPROG ---
Hospitalist Progress Note Assessment/Plan: 81 yo M w dementia admitted w sepsis, L lingular pneumonia and now hypernatremia # hypernatremia- 157 on admit, worsened by saline resuscitation (required for sepsis) -> 165 alert but very confused and unknown baseline, although dementia noted receiving hypotonic fluids - per nephrology down to 155 this am - holding IVF - rechecking this afternoon - pt taking little PO # sepsis- leukocytosis and fever at presentation - presumed source is pneumonia - s/p fluid resuscitation resolved - normalizing lactate - cont empiric antibiotics # Acute pneumonia- suspect HCAP- CXR (personally reviewed and interpreted) left sided infiltrate blood cultures NGTD - cont IV antibiotics # AHRF: 2/2 pneumonia - oxygen saturations 98% on 3L - work to wean O2 # MILAD -pre renal creatinine 1.9 -> 1.1 - cont to follow # acute Encephalopathy - suspect delirium- with dementia # heel wounds: present on admit - wound care following # proph: lmwh # dispo: inpt # code: dnr I have discussed the case with Dr. Cole - we will place a PICC today and continue correction with hypotonic fluids Subjective: doesnt report pain Objective: Vital Signs Temp Pulse Resp BP Pulse Ox 36.6 C 51 L 15 94/81 H 96 03/26/17 09:18 03/26/17 11:59 03/26/17 11:59 03/26/17 11:59 03/26/17 11:59 Laboratory Results 03/26/17 03:00 03/25/17 03/26/17 03/27/17 05:59 05:59 05:59 Intake Total 2231 730 1275 Output Total 675 1400 Balance 1556 -670 1275 PT 16.6 SEC (12.0-15.0) H 03/23/17 20:00 INR 1.32 (0.83-1.16) H 03/23/17 20:00 - Physical Exam Constitutional: chronically ill appearing Eyes: anicteric sclera Ears, Nose, Mouth, Throat: dry mucous membranes Cardiovascular: regular rate and rhythym Respiratory: no respiratory distress Gastrointestinal: normoactive bowel sounds, No tenderness Genitourinary: no bladder fullness Skin: warm Musculoskeletal: No asymmetric calves Neurologic: No AAOx3 Psychiatric: poor insight, poor judgement, poor memory Lymph, Heme, Immunologic: no cervical LAD ICD10 Worksheet Patient Problems: Problems Problem Status Onset Cardiac ischemia Acute Renal failure Acute Respiratory failure Acute Severe sepsis Acute
[2017-03-26] MEDS ORDERED: OLANZapine DISINTEGR 5 MG TAB PO ONE (14:11)
[2017-03-26] MEDS: D5W 1/4 NS 1,000 ML IV SCH (22:30)
[2017-03-27] MEDS: D5W 1/4 NS 1,000 ML IV SCH (04:26)
[2017-03-27] MEDS: PIPERACILLIN/TAZO 3.375 GM/DEX 50 ML IV SCH ×3 (06:11→21:49)
[2017-03-27 06:15] LABS: PLATELET COUNT 444 10^3/uL (150-400)
[2017-03-27] MEDS: ENOXAPARIN 30 MG/0.3 ML SYR SC SCH (09:23)
[2017-03-27] MEDS ORDERED: D5W 1/4 NS 1,000 ML IV SCH (09:30)
--- NOTE | 2017-03-27 09:34 | SOAPPROG ---
SOAP Progress Note Assessment/Plan: Assessment: 1. Hypernatremia We now have PICC line, and are getting more consistent IVF administration and blood draws. He likely is both total body sodium deplete, and originally had about a 5L water deficit. He is tolerating D51/4 NS. Will increase rate slightly. His Uosm are concentrated, although shy of the 1100mosm a younger person could generate. Some of this is age related. It is possible that he could benefit from DDAVP. I would plan on following him today, and potentially challenging with DDAVP this week. Subjective: Remains disoriented, unclear of baseline Objective: Vital Signs Temp Pulse Resp BP Pulse Ox 36.8 C 64 15 96/81 H 97 03/27/17 08:00 03/27/17 08:00 03/27/17 08:00 03/27/17 08:00 03/27/17 08:00 Laboratory Results 03/27/17 06:05 03/26/17 03/27/17 03/28/17 05:59 05:59 05:59 Intake Total 730 3325 Output Total 1400 1 Balance -670 3324 PT 16.6 SEC (12.0-15.0) H 03/23/17 20:00 INR 1.32 (0.83-1.16) H 03/23/17 20:00 Physical Exam - Physical Exam General Appearance: no apparent distress, cachetic Respiratory: lungs clear Cardiac/Chest: regular rate, rhythm Extremities: normal inspection Neuro/Psych: disoriented to person, disoriented to place, disoriented to time ICD10 Worksheet Patient Problems: Problems Problem Status Onset Cardiac ischemia Acute Renal failure Acute Respiratory failure Acute Severe sepsis Acute
[2017-03-27] MEDS ORDERED: OLANZapine DISINTEGR 5 MG TAB PO PRN (12:39)
--- NOTE | 2017-03-27 12:48 | HOSPPROG ---
Hospitalist Progress Note Assessment/Plan: 81 yo M w dementia admitted w sepsis, L lingular pneumonia and now hypernatremia # hypernatremia- 157 on admit, worsened by saline resuscitation (required for sepsis) -> 165 less alert today but not restless- placed a PICC yesterday receiving hypotonic fluids - per nephrology down to 154 this am - cont IVF per nephrology - rechecking Q3-6 per nephrology - nephrology considering DDAVP - pt continues taking almost nothing PO # sepsis- leukocytosis and fever at presentation - presumed source is pneumonia - s/p fluid resuscitation resolved - normalizing lactate - cont empiric antibiotics # Acute pneumonia- suspect HCAP- CXR (personally reviewed and interpreted) left sided infiltrate blood cultures remain NGTD - cont IV antibiotics day 05/28 # AHRF: 2/2 pneumonia - oxygen saturations 89-92% on RA - work to wean O2 # MILAD -pre renal creatinine 1.9 -> 1.3 - cont to follow # acute Encephalopathy - suspect delirium- with dementia - prn Zydis for agitation # severe protein calorie malnutrition - BMI 19 - with progressive dementia pt has taken no meaningful nutrition intake overnight - certainly concerning reality in light of metabolic derangements- concerned pt will not be able to maintain corrections accomplished as inpatient - discussing hospice at dispo # heel wounds: present on admit - wound care following # proph: lmwh # dispo: inpt # code: dnr I have discussed the case with RN and CM - continue current care but consult Hospice for information on discharge Subjective: no events overnight Objective: Vital Signs Temp Pulse Resp BP Pulse Ox 36.8 C 64 15 96/81 H 97 03/27/17 08:00 03/27/17 08:00 03/27/17 08:00 03/27/17 08:00 03/27/17 08:00 Laboratory Results 03/27/17 06:05 03/27/17 12:00 03/26/17 03/27/17 03/28/17 05:59 05:59 05:59 Intake Total 730 3325 Output Total 1400 1 Balance -670 3324 PT 16.6 SEC (12.0-15.0) H 03/23/17 20:00 INR 1.32 (0.83-1.16) H 03/23/17 20:00 - Physical Exam Constitutional: cachectic Eyes: anicteric sclera Ears, Nose, Mouth, Throat: dry mucous membranes Cardiovascular: regular rate and rhythym, systolic murmur Respiratory: no respiratory distress Gastrointestinal: normoactive bowel sounds Genitourinary: no bladder fullness Skin: warm Musculoskeletal: No asymmetric calves Neurologic: No AAOx3 Psychiatric: not anxious Lymph, Heme, Immunologic: no cervical LAD ICD10 Worksheet Patient Problems: Problems Problem Status Onset Cardiac ischemia Acute Renal failure Acute Respiratory failure Acute Severe sepsis Acute
[2017-03-27] MEDS ORDERED: HALOPERIDOL LACT 5 MG/ML INJ IVP PRN (17:08)
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
[2017-03-27] MEDS ORDERED: POTASSIUM CL 10 MEQ TAB PO ONE (23:47)
[2017-03-28] MEDS: POTASSIUM Cl (KCl) 10 MEQ in D5W 100 ML IV SCH ×2 (00:23→01:36)
[2017-03-28] MEDS: PIPERACILLIN/TAZO 3.375 GM/DEX 50 ML IV SCH ×3 (05:18→23:04)
[2017-03-28 05:52] LABS: PLATELET COUNT 407 10^3/uL (150-400)
[2017-03-28] MEDS ORDERED: D5W 1/4 NS 1,000 ML IV SCH (07:15)
--- NOTE | 2017-03-28 08:05 | SOAPPROG ---
SOAP Progress Note Assessment/Plan: Assessment: 1)Hypernatremia -suspect due to poor intake in setting on end stage dementia -did require some IVNS initially given concerns for sepsis -Na now correcting appropriately, down to 150 today on D51/4 saline-- agree with decreasing rate to 100cc/hr -due to advanced dementia, he is at high risk for recurrence-- agree with recommendations for hospice and would not recommend feeding tube, etc 2)Severe dementia 3)pneumonia -blood Cx neg -on empirica antibiotics, wbc better I discussed with Dr Heather Marrero MD [facility] pager [phone] 03/28/17 09:54 Subjective: Did not sleep much last night due to agitation, confusion per sitter. Na down to 150 this am. Sleeping comfortably now. Objective: Vital Signs Temp Pulse Resp BP Pulse Ox 36.9 C 75 18 144/85 H 93 03/28/17 04:06 03/28/17 04:06 03/28/17 04:06 03/28/17 04:06 03/28/17 04:06 Laboratory Results 03/28/17 05:30 03/28/17 05:30 03/27/17 03/28/17 03/29/17 05:59 05:59 05:59 Intake Total 3325 Output Total 1 150 200 Balance 3324 -150 -200 PT 16.6 SEC (12.0-15.0) H 03/23/17 20:00 INR 1.32 (0.83-1.16) H 03/23/17 20:00 Physical Exam - Physical Exam General Appearance: no apparent distress Respiratory: lungs clear (poor effort) Cardiac/Chest: regular rate, rhythm Abdomen: non-tender, soft Extremities: other (no edema) Neuro/Psych: other (sleeping) ICD10 Worksheet Patient Problems: Problems Problem Status Onset Cardiac ischemia Acute Renal failure Acute Respiratory failure Acute Severe sepsis Acute
[2017-03-28] MEDS ORDERED: HALOPERIDOL LACT 5 MG/ML INJ IVP PRN (12:55)
--- NOTE | 2017-03-28 15:02 | HOSPPROG ---
Hospitalist Progress Note Assessment/Plan: 81 yo M w dementia admitted w sepsis, L lingular pneumonia and now hypernatremia # Acute agitation overnight - suspect 2/2 dementia and delirium - non-violent restains as needed - re-orientation and request for family bedside - haldol IV as last choice - zydis prn - has been very successful when he is willing to take # hypernatremia- 157 on admit, worsened by saline resuscitation (required for sepsis) -> 165 PICC placed receiving hypotonic fluids - per nephrology down to 150 this am - cont IVF per nephrology - rechecking per nephrology - pt continues taking almost nothing PO # sepsis- leukocytosis and fever at presentation - presumed source is pneumonia - s/p fluid resuscitation resolved - normalizing lactate - cont empiric antibiotics # Acute pneumonia- suspect HCAP- CXR (personally reviewed and interpreted) left sided infiltrate blood cultures remain NGTD - cont IV antibiotics day 06/27 # AHRF: 2/2 pneumonia - oxygen saturations 89-92% on RA - work to wean O2 # MILAD -pre renal creatinine 1.9 -> 1.3 - cont to follow # acute Encephalopathy - suspect delirium- with dementia - prn Zydis for agitation # severe protein calorie malnutrition - BMI 19 - with progressive dementia pt has taken no meaningful nutrition intake overnight - certainly concerning reality in light of metabolic derangements- concerned pt will not be able to maintain corrections accomplished as inpatient - discussing hospice at dispo # heel wounds: present on admit - wound care following # proph: lmwh # dispo: inpt # code: dnr I have discussed the case with RN working to re-orient with music and changes to environment - avoiding sedatives Subjective: aggressive with staff overnight Objective: Vital Signs Temp Pulse Resp BP Pulse Ox 37.5 C 67 28 H 118/95 H 95 03/28/17 13:53 03/28/17 12:00 03/28/17 12:00 03/28/17 12:00 03/28/17 12:00 Laboratory Results 03/28/17 05:30 03/28/17 05:30 03/27/17 03/28/17 03/29/17 05:59 05:59 05:59 Intake Total 3325 200 Output Total 1 150 200 Balance 3324 -150 0 PT 16.6 SEC (12.0-15.0) H 03/23/17 20:00 INR 1.32 (0.83-1.16) H 03/23/17 20:00 - Physical Exam Constitutional: cachectic Eyes: anicteric sclera Ears, Nose, Mouth, Throat: dry mucous membranes Cardiovascular: regular rate and rhythym Respiratory: no respiratory distress Gastrointestinal: normoactive bowel sounds Genitourinary: no bladder fullness Skin: warm Musculoskeletal: No asymmetric calves Neurologic: No AAOx3 Psychiatric: No agitated Lymph, Heme, Immunologic: no cervical LAD ICD10 Worksheet Patient Problems: Problems Problem Status Onset Cardiac ischemia Acute Renal failure Acute Respiratory failure Acute Severe sepsis Acute
--- NOTE | 2017-03-28 17:04 | ASMTCMCOM ---
CM Note CM Note Notes: Reviewed chart and discussed w/RN and Hospitalist, Dr Romero. Met w/pt's , Alexis, to follow up on facilities that had been discussed yesterday w/CM. She had not decided on a facility or looked at them and asked again about finding one close to her home. She said she could not afford [facility]. Alexis did seem open to the idea of her going to a facility and being followed by Hospice there but at same time whe was asking if he could stay here where he was getting good care. However, Dr Romero feels pt will soon be ready to dc once we have dc plan in place. I let pt's know that I would find out some more info and look at proximities of SNFs to their home. Notified pt's later with SNF info: [facility] and [facility] both about 15 minutes from her home according to [employer]. [facility] has semi priv bed available in both memory care (not locked) which is $370/d and LTC which is $353/d. Left voicemail at [facility] but according to CM notes yesterday semi priv rm available at $295/d. [facility] does not have bed availability. Did not discuss daily rates w/ over phone today so CM can do this tomorrow. She plans to be here. Date Signed: 03/28/2017 05:04 PM Electronically Signed By:Lupe Rubio RN
[2017-03-28] MEDS: ENOXAPARIN 30 MG/0.3 ML SYR SC SCH (18:33)
[2017-03-29] MEDS ORDERED: INSULIN LISPRO 100 UNIT/ML SC ONE (01:24)
[2017-03-29] MEDS: PIPERACILLIN/TAZO 3.375 GM/DEX 50 ML IV SCH ×2 (05:28→14:27)
[2017-03-29] MEDS: ENOXAPARIN 30 MG/0.3 ML SYR SC SCH (08:35)
[2017-03-29] MEDS: ACETAMINOPHEN 325 MG TAB PO PRN (08:36)
[2017-03-29] MEDS: ACETAMINOPHEN 650 MG SUPP PR PRN (11:20)
[2017-03-29] MEDS: D5W 1,000 ML IV SCH ×2 (12:15→22:55)
[2017-03-29] MEDS: ALTEPLASE 2 MG VIAL IVP PRN (14:27)
--- NOTE | 2017-03-29 14:37 | WOCRNPDOC ---
MILI Advanced Assessment Note - Skin Integrity Problem, Advanced Assess Right Heel Pressure Injury Dressing Type: Mepilex Other Dressing Type: netting, heel boots in place Dressing Description: Clean/Dry, Intact Exudate Amount: None Integumentary Issue Intervention: Visualized Under Dressing Tena Wound Tissue: Blanching, Intact Wound Bed Constitution: Intact Serous Filled Blister Wound Edges: Well Defined Site Measurement - Head-to-Toe Length X Width X Depth (cm): unable to measure due to patient agitation. Appear similar in size to my encounter on 03/24. Will attempt to measure again later this week. Pressure Injury Stage: Deep Tissue Injury (DTI) Pressure Injury Present on Admit: Yes Skin Integrity Problem Comment: Heel blister remains intact. Wound bed still with deep purple component. Wound care will round again later this week. Please inform wound care if this wound opens. Left Heel Pressure Injury Dressing Type: Mepilex Other Dressing Type: netting, heel boots in place Exudate Amount: None Integumentary Issue Intervention: Visualized Under Dressing Tena Wound Tissue: Intact Wound Bed Constitution: Intact Serous Filled Blister Wound Edges: Well Defined Site Measurement - Head-to-Toe Length X Width X Depth (cm): Patient agitated. No measurements obtained due to condition. Will attempt to measure later this week. Dimensions similar to measurements taken 03/24. Pressure Injury Stage: Deep Tissue Injury (DTI) Pressure Injury Present on Admit: Yes Skin Integrity Problem Comment: Heel boot removed with assist from CHENCHO Garcia ([facility]) . Blister remains intact with purple wound bed below. Please let wound care know if this blister opens. Wound care will round again later this week. Left Lateral Distal Foot Pressure Injury Dressing Type: Allevyn Life (cut) Exudate Amount: None Integumentary Issue Intervention: Visualized Under Dressing Tena Wound Tissue: Blanching Wound Bed Color: [place] (intact) Wound Edges: Well Defined Skin Integrity Problem Comment: It appears that the blister has been reabsorbed. Skin is pink, intact and blanching. Agree with keeping the area covered for now. Wound care will round again later this week.
--- NOTE | 2017-03-29 14:43 | ASMTCMCOM ---
CM Note CM Note Notes: I met with patient's daughters Abi and Soumya and Alexis today to discuss discharge planning. Although it appears that my colleagues in Case Management have spent a lot of time both discussing and researching options with the family, they still had some questions and concerns. Our conversation centered around the two options of home with hospice and private duty caregiving versus a [facility] facility with hospice. Interjected in this conversation were one daughter's outbursts about finances and feeling pressured to spend money on patient's care and 's insistence that we not pressure her until she's had time to think about things. I honored both of these perspectives and encouraged the family to think about the patient's best interests. I also assured them that whatever decision they made did not necessarily have to be permanent, and that hospice would serve as their best advocate/liason once patient was discharged from [facility]. Family left the meeting certain that they were going to pursue the facility/hospice route rather than taking patient home. just doesn't think she can handle him. They planned to visit [facility] and [facility]. They also planned to ask which hospice agencies each facility used. I sent referrals to each facility and will follow up based on family's wishes. We will need to sent a referral to a hospice agency [facility] once a facility is selected. Current CM Discharge plan: [facility] facility with hospice Date Signed: 03/29/2017 02:43 PM Electronically Signed By:Valentina Joaquin RN
--- NOTE | 2017-03-29 15:39 | HOSPPROG ---
Hospitalist Progress Note Assessment/Plan: 81 yo M w dementia admitted w sepsis, L lingular pneumonia and now hypernatremia # hypernatremia- 157 on admit, worsened by saline resuscitation (required for sepsis) -> 165 PICC placed receiving hypotonic fluids - per nephrology drip stopped overnight I suspect 2/2 spurious lab value - restarting D5W at 100 /hr - BMP in am # Acute Hypoglycemia - BS 33 - suspect 2/2 10 units of insulin overnight that may have been given for a spurious lab value - D5w gtt continued - BS normalized # Fever - intermittent - suspect may be related to aspiration with fluctuating alertness - completing antibiotics today for PNA - no additional empiric antibiotics # Acute agitation - suspect 2/2 dementia and delirium- improved in past 24 hours - non-violent restraints as needed - re-orientation and request for family bedside - haldol IV as last choice - zydis prn - has been very successful when he is willing to take # sepsis- leukocytosis and fever at presentation - presumed source is pneumonia - s/p fluid resuscitation resolved - normalizing lactate - cont empiric antibiotics # Acute pneumonia- suspect HCAP- CXR (personally reviewed and interpreted) left sided infiltrate- WBC 15->8 blood cultures remain NGTD -completing IV antibiotics today # AHRF: 2/2 pneumonia - oxygen saturations 93% on 2L - work to wean O2 # MILAD -pre renal creatinine 1.9 -> 1.4 - cont to follow # acute Encephalopathy - suspect delirium- with dementia - prn Zydis for agitation # severe protein calorie malnutrition - BMI 19 - with progressive dementia pt has taken no meaningful nutrition intake overnight - certainly concerning reality in light of metabolic derangements- concerned pt will not be able to maintain corrections accomplished as inpatient - discussing hospice at dispo # heel wounds: present on admit - wound care following # proph: lmwh # dispo: inpt # code: dnr I have discussed the case with CM - planning hospice dispo - family touring facilities today Subjective: no events overnight Objective: Vital Signs Temp Pulse Resp BP Pulse Ox 37.8 C 54 L 32 H 99/49 L 93 03/29/17 12:00 03/29/17 12:00 03/29/17 12:00 03/29/17 12:00 03/29/17 12:00 Laboratory Results 03/28/17 05:30 03/29/17 06:00 03/28/17 03/29/17 03/30/17 05:59 05:59 05:59 Intake Total 550 30 Output Total 150 200 Balance -150 350 30 PT 16.6 SEC (12.0-15.0) H 03/23/17 20:00 INR 1.32 (0.83-1.16) H 03/23/17 20:00 - Physical Exam Constitutional: chronically ill appearing, cachectic Eyes: anicteric sclera Ears, Nose, Mouth, Throat: dry mucous membranes Cardiovascular: regular rate and rhythym Respiratory: no respiratory distress Gastrointestinal: normoactive bowel sounds Genitourinary: no bladder fullness Skin: warm Musculoskeletal: No asymmetric calves Neurologic: No AAOx3 Psychiatric: encephalopathic Lymph, Heme, Immunologic: no cervical LAD ICD10 Worksheet Patient Problems: Problems Problem Status Onset Cardiac ischemia Acute Renal failure Acute Respiratory failure Acute Severe sepsis Acute
[2017-03-30] MEDS: D5W 1,000 ML IV SCH (10:06)
[2017-03-30] MEDS: ENOXAPARIN 30 MG/0.3 ML SYR SC SCH (12:21)
[2017-03-30] MEDS: ACETAMINOPHEN 650 MG SUPP PR PRN (12:26)
--- NOTE | 2017-03-30 13:12 | HOSPPROG ---
Hospitalist Progress Note Assessment/Plan: 81 yo M w dementia admitted w sepsis, L lingular pneumonia and now hypernatremia # hypernatremia- resolved with D5W # Acute Hypoglycemia - BS 33 - suspect 2/2 10 units of insulin overnight that may have been given for a spurious lab value - BG's better now, d/c D5W and follow bg's closely # sepsis- leukocytosis and fever at presentation - presumed source is pneumonia (?aspiration). s/p fluid resuscitation. Fevers recurred since stopping atbx yesterday. BCX's ngtd. - repeat CXR today personally reviewed and interpreted, progressive infiltrates - resume zosyn to complete 7 day course - speech eval requested to re-evaluate for ongoing aspiration # AHRF: 2/2 pneumonia - oxygen saturations 93% on 2L - wean O2 as able # Acute agitation - suspect 2/2 dementia and delirium- improved in past 24 hours - non-violent restraints as needed - re-orientation and request for family bedside - haldol IV as last choice - zydis prn - has been very successful when he is willing to take # MILAD -pre renal creatinine 1.9 -> 1.4 - cont to follow - renally dose medications # severe protein calorie malnutrition - BMI 19 - with progressive dementia, poor oral intake - concerned pt will not be able to maintain adequate oral intake - discussing hospice at dispo, daughter Abi in favor of this and will discuss with and sister # heel wounds: present on admit - wound care following # proph: lmwh # dispo: inpt, likely to LTC at d/c on hospice. CM working with family. # code: dnr Subjective: Pt is demented, not responding appropriately to questions. Grimaces at blood draw. +fever today. +cough. Little oral intake Objective: Vital Signs Temp Pulse Resp BP Pulse Ox 39.2 C H 77 30 H 138/73 H 93 03/30/17 12:25 03/30/17 12:25 03/30/17 12:25 03/30/17 12:25 03/30/17 12:25 Laboratory Results 03/28/17 05:30 03/30/17 05:43 03/29/17 03/30/17 03/31/17 05:59 05:59 05:59 Intake Total 550 1617 Output Total 200 Balance 350 1617 PT 16.6 SEC (12.0-15.0) H 03/23/17 20:00 INR 1.32 (0.83-1.16) H 03/23/17 20:00 - Physical Exam Constitutional: chronically ill appearing Eyes: PERRL Ears, Nose, Mouth, Throat: moist mucous membranes Cardiovascular: regular rate and rhythym Respiratory: no respiratory distress, inspiratory crackles Gastrointestinal: normoactive bowel sounds, soft, non-tender abdomen Skin: warm Psychiatric: encephalopathic, poor memory ICD10 Worksheet Patient Problems: Problems Problem Status Onset Cardiac ischemia Acute Renal failure Acute Respiratory failure Acute Severe sepsis Acute
[2017-03-30] MEDS: PIPERACILLIN/TAZO 3.375 GM/DEX 50 ML IV SCH ×3 (13:38→23:53)
[2017-03-30 13:44] LABS: PLATELET COUNT 407 10^3/uL (150-400)
[2017-03-31] MEDS: PIPERACILLIN/TAZO 3.375 GM/DEX 50 ML IV SCH ×2 (05:52→11:20)
--- NOTE | 2017-03-31 11:03 | WOCRNPDOC ---
WOCRRhys Advanced Assessment Note - Skin Integrity Problem, Advanced Assess Right Heel Pressure Injury Dressing Type: Mepilex, Other Other Dressing Type: medipore tape, netting Dressing Description: Clean/Dry, Intact Exudate Amount: None Integumentary Issue Intervention: Visualized Under Dressing Wound Bed Color: Purple, Red Wound Bed Constitution: Intact Serous Filled Blister Wound Edges: Well Defined Site Measurement - Head-to-Toe Length X Width X Depth (cm): 9x5.5xintact blister Pressure Injury Stage: Deep Tissue Injury (DTI) Pressure Injury Present on Admit: Yes Skin Integrity Problem Comment: Please let wound care know if blister opens. Left Heel Pressure Injury Dressing Type: Mepilex Other Dressing Type: medipore tape, netting Dressing Description: Clean/Dry, Intact Integumentary Issue Intervention: Visualized Under Dressing Tena Wound Tissue: Intact Wound Bed Color: Yellow Wound Bed Constitution: Intact Serous Filled Blister Wound Edges: Well Defined Site Measurement - Head-to-Toe Length X Width X Depth (cm): 4.7u2ocoyeeg blister Pressure Injury Stage: Stage 2 Pressure Injury Present on Admit: Yes Skin Integrity Problem Comment: Please let wound care know if blister opens. Left Lateral Distal Foot Pressure Injury Dressing Type: Allevyn Life, Other Other Dressing Type: medipore tape Dressing Description: Clean/Dry, Intact Exudate Amount: None Integumentary Issue Intervention: Visualized Under Dressing Tena Wound Tissue: Blanching, Erythema Wound Bed Color: [place] Site Measurement - Head-to-Toe Length X Width X Depth (cm): 1.9x1.3xintact Pressure Injury Stage: Stage 2 Pressure Injury Present on Admit: Yes Peripheral Edema Location & Description: Blister to this area has been absorbed. Skin intact. Wound care will round again next week. Left Lateral Foot Pressure Injury Dressing Type: Allevyn Life, Other Other Dressing Type: medipore tape Dressing Description: Clean/Dry, Intact Integumentary Issue Intervention: Visualized Under Dressing Tena Wound Tissue: Intact Wound Bed Color: [place] Wound Edges: Well Defined Site Measurement - Head-to-Toe Length X Width X Depth (cm): 1.4x1.9xintact Pressure Injury Stage: Stage 2 Pressure Injury Present on Admit: Yes Skin Integrity Problem Comment: Appears that blister has been reabsorbed. Will continue to follow. Left Lateral Ankle Pressure Injury Dressing Type: Allevyn Life, Other Other Dressing Type: medipore tape Dressing Description: Clean/Dry, Intact Exudate Amount: None Integumentary Issue Intervention: Visualized Under Dressing Tena Wound Tissue: Blanching, Erythema Wound Bed Color: Red Wound Edges: Well Defined Site Measurement - Head-to-Toe Length X Width X Depth (cm): 1.7x1.1xscab Pressure Injury Stage: Stage 2 Pressure Injury Present on Admit: Yes Skin Integrity Problem Comment: Wound bed no longer purple. Will continue to monitor how this wound evolves.
[2017-03-31] MEDS: ALTEPLASE 2 MG VIAL IVP PRN (11:42)
[2017-03-31] MEDS: ENOXAPARIN 30 MG/0.3 ML SYR SC SCH (11:45)
[2017-03-31] MEDS: ACETAMINOPHEN 650 MG SUPP PR PRN (12:04)
--- NOTE | 2017-03-31 20:17 | HOSPPROG ---
Hospitalist Progress Note Assessment/Plan: 81 yo M w dementia admitted w sepsis, L lingular pneumonia and now hypernatremia # hypernatremia- resolved with D5W # sepsis- leukocytosis and fever at presentation - presumed source is pneumonia (?aspiration). s/p fluid resuscitation. BCX's ngtd. S/P 7 days atbx therapy. Rpt CXR with progressive infiltrates. See family meeting notes below regarding goals of care, moving to comfort care. # AHRF: 2/2 pneumonia - oxygen saturations 93% on 2L - wean O2 as able # Acute agitation - suspect 2/2 dementia and delirium- improved - non-violent restraints as needed - re-orientation and request for family bedside - zydis prn - has been very successful, will stick with low dose # MILAD -pre renal creatinine 1.9 -> 1.3 - cont to follow - renally dose medications # severe protein calorie malnutrition - BMI 19 - with progressive dementia, poor oral intake - concerned pt will not be able to maintain adequate oral intake # heel wounds: present on admit - wound care following # proph: lmwh # dispo: cont inpt. Family meeting today with daughters Abi and Soumya and . Though it has been a difficult course with recent hospitalization at OSH and declining condition, they are all in agreement to transition to comfort care. He will d/c to SNF with hospice / comfort measures tomorrow. D/C PICC today. Appreciate CM assistance with dispo planning. # code: dnr Subjective: Pt is withdrawn, somnolent, not eating or drinking much. No fevers. Not responding to questions. Objective: Vital Signs Temp Pulse Resp BP Pulse Ox 37.1 C 64 18 100/63 91 L 03/31/17 19:33 03/31/17 19:33 03/31/17 19:33 03/31/17 19:33 03/31/17 19:33 Laboratory Results 03/30/17 13:30 03/31/17 05:59 03/30/17 03/31/17 04/01/17 05:59 05:59 05:59 Intake Total 1617 963 400 Output Total 1 Balance 1617 962 400 PT 16.6 SEC (12.0-15.0) H 03/23/17 20:00 INR 1.32 (0.83-1.16) H 03/23/17 20:00 - Physical Exam Constitutional: no apparent distress Eyes: PERRL Ears, Nose, Mouth, Throat: moist mucous membranes Cardiovascular: regular rate and rhythym Respiratory: no respiratory distress, inspiratory crackles Gastrointestinal: normoactive bowel sounds, soft, non-tender abdomen Skin: warm Musculoskeletal: other (b/l LE pressure relieving boots in place) Psychiatric: encephalopathic ICD10 Worksheet Patient Problems: Problems Problem Status Onset Cardiac ischemia Acute Renal failure Acute Respiratory failure Acute Severe sepsis Acute
[2017-03-31] MEDS ORDERED: OLANZapine DISINTEGR 5 MG TAB PO PRN (20:20)
[2017-04-01] MEDS: ENOXAPARIN 30 MG/0.3 ML SYR SC SCH (09:16)
[2017-04-01] MEDS: ACETAMINOPHEN 650 MG SUPP PR PRN (12:39)
--- NOTE | 2017-04-01 14:36 | ASMTCMCOM ---
CM Note CM Note Notes: Faxed updates to [facility] and they have agreed to take pt as private pay, however, they currently have at least one flu case and cannot take pt until 24 hrs with no symtoms. Mahad from [facility] will meet with the family in pt's room this afternoon. Pt's and dtr would like to be contacted with an update tomorroow morning. CM to follow. Date Signed: 04/01/2017 02:35 PM Electronically Signed By:Leah Ramos LCSW
--- NOTE | 2017-04-01 18:28 | HOSPPROG ---
Hospitalist Progress Note Assessment/Plan: 81 yo M w dementia admitted w sepsis, L lingular pneumonia and now hypernatremia # hypernatremia- resolved with D5W, though note rising Na off IVF's -defer further labs as pt discharging on hospice / comfort care tomorrow # sepsis- leukocytosis and fever at presentation - presumed source is pneumonia (?aspiration). s/p fluid resuscitation. BCX's ngtd. S/P 7 days atbx therapy. Rpt CXR with progressive infiltrates. See family meeting notes below regarding goals of care, moving to comfort care. # AHRF: 2/2 pneumonia - likely continues to aspirate. oxygen saturations 93% on 2L # Acute agitation - suspect 2/2 dementia and delirium- improved - non-violent restraints as needed - re-orientation and request for family bedside - zachery prn - has been very successful, will stick with low dose # MILAD -pre renal creatinine 1.9 -> 1.3 - cont to follow - renally dose medications # severe protein calorie malnutrition - BMI 19 - with progressive dementia, poor oral intake - concerned pt will not be able to maintain adequate oral intake # heel wounds: present on admit - wound care following # proph: lmwh # dispo: cont inpt. Family meeting yesterday with daughters Abi and Soumya and . Though it has been a difficult course with recent hospitalization at OSH and declining condition, they are all in agreement to transition to comfort care. He will d/c to SNF with hospice / comfort measures tomorrow. Appreciate CM assistance with dispo planning. # code: dnr Subjective: Pt demented, confused, but not terribly agitated. No fevers. Not much oral intake. Objective: Vital Signs Temp Pulse Resp BP Pulse Ox 37.0 C 75 18 105/64 90 L 04/01/17 17:51 04/01/17 17:51 04/01/17 17:51 04/01/17 17:51 04/01/17 17:51 Laboratory Results 03/30/17 13:30 04/01/17 06:09 03/31/17 04/01/17 04/02/17 05:59 05:59 05:59 Intake Total 963 400 Output Total 1 Balance 962 400 PT 16.6 SEC (12.0-15.0) H 03/23/17 20:00 INR 1.32 (0.83-1.16) H 03/23/17 20:00 - Physical Exam Constitutional: no apparent distress Eyes: PERRL Ears, Nose, Mouth, Throat: moist mucous membranes Cardiovascular: regular rate and rhythym Respiratory: no respiratory distress Gastrointestinal: normoactive bowel sounds, soft, non-tender abdomen Skin: warm Musculoskeletal: generalized weakness Psychiatric: encephalopathic, poor memory ICD10 Worksheet Patient Problems: Problems Problem Status Onset Cardiac ischemia Acute Renal failure Acute Respiratory failure Acute Severe sepsis Acute
[2017-04-02] MEDS: ACETAMINOPHEN 325 MG TAB PO PRN (07:44)
[2017-04-02] MEDS: ENOXAPARIN 30 MG/0.3 ML SYR SC SCH (07:45)
--- NOTE | 2017-04-02 10:59 | PDIAF ---
- Diagnosis Diagnosis: end stage dementia Code Status: Do Not Resuscitate - Medication Management Discharge Medications: Medications to Continue on Transfer Aspirin [Aspirin 81mg (*)] 81 mg PO DAILY 03/23/17 [Last Taken 03/23/17] Melatonin [Melatonin 3 MG (*)] 3 mg PO HS 03/23/17 [Last Taken 03/22/17] Sennosides [Senokot] 1 tab PO DAILY PRN 03/23/17 [Last Taken Unknown] Acetaminophen [Tylenol Rectal] 650 mg HI Q4HRS PRN supp 04/02/17 [Last Taken Unknown] OLANZapine DISINTEGR [ZyPREXA ZYDIS (*)] 2.5 mg PO BID PRN #60 tab 04/02/17 [ Last Taken Unknown] Discharge Medications: Refer to the Discharge Home Medication list for PRN reason. PICC Care - Routine: N/A - Orders Services needed: Registered Nurse Isolation Type: None Diet Recommendation: no restrictions on diet Diet Texture: Dysphagia 1 - Pureed, [place] Thick Liquids, Meds Crushed in Puree Additional: Comfort / hospice care - Follow Up Care Current Providers and Referrals: Patient,NotPresent [Unknown] - As per Instructions
[2017-04-02 11:32] VITALS: BP 107/54; PULSE 69; RESP 17; TEMP 98.9; O2SAT 96
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
--- NOTE | 2017-04-02 20:05 | GDS ---
[f rep st] DISCHARGE SUMMARY DISCHARGE DIAGNOSES: 1. Hypernatremia, which resolved with D5W though continued to rise due to the patient's inability to maintain oral intake. 2. Sepsis secondary to presumed aspiration pneumonia, status post 7 days IV Zosyn therapy. 3. Acute hypoxemic respiratory failure secondary to pneumonia. Remains on 2 L of oxygen. 4. End-stage dementia with intermittent episodes of agitation, improved with low dose Zyprexa. 5. Acute kidney injury. 6. Severe protein calorie malnutrition. 7. Bilateral heel wounds. CONSULTANTS: None. HISTORY: Please see the history and physical dated March 24, 2017. In brief , the patient is an 81-year-old male with a history of dementia, who presents to the emergency department from [facility] with lethargy. ED workup was notable for hypoxemia, hypotension, and evidence of sepsis most likely secondary to pneumonia with high risk for aspiration due to his end-stage dementia. It was noted he was DNR with comfort measures only, although after discussion with family on admission, they did opt to receive antibiotics and fluids with no further escalation of care. He was admitted to the hospital for further management. HOSPITAL COURSE: The patient admitted to Med-Surg unit. He was initially treated with vancomycin and Zosyn for healthcare-acquired pneumonia given his recent hospitalization and nursing facility status. He was continued on Zosyn to complete 1-week course to also cover for aspiration. The patient was evaluated by Speech Therapy and placed on a dysphagia 1 diet, pureed, nectar thick liquids, as he does have evidence for aspiration and likely is at risk for ongoing aspiration pneumonia due to his impaired swallow. This is likely related to his end-stage dementia. He was given D5W for his hypernatremia and his sodium did normalize for a period of time. He had intermittent episodes of agitation and responded quite well to low-dose p.r.n. Zyprexa. It is noted he has severe protein calorie malnutrition. It is unlikely he will be able to maintain adequate oral intake due to his progressive dementia. Ongoing discussions were had with his and 2 daughters. I had an extensive family meeting with his 3 family members as well as Case Management and ultimately they wished to transition back to comfort care. Hospice is arranged upon arrival to [facility]. DISPOSITION: Patient is discharged to snf facility with plans for hospice and comfort care measures. DISCHARGE MEDICATIONS: Please see [employer] for completed outpatient medication list. New medications on discharge include Zyprexa Zydis oral disintegrating tablet 2.5 mg p.o. twice daily p.r.n., #60, no refills; Tylenol 650 mg p.o. q.4 hours p.r.n. Discontinued medications include Seroquel and Haldol. Further medications as directed by his hospice team for comfort care. /[id number]/MODL MTDD
== END 2017-04-02 14:30 | DRG 871 ==
LOC: OBSVTOIN 22:17 → F1N 03-24 00:01
PROVIDERS: ADMIT Family Medicine; ATTEND Family Medicine
PROC: 02HV33Z Insertion of Infusion Device into Superior Vena Cava, Percutaneous Approach (ICD-10-PCS; principal; 2017-03-26)
DX: A41.9 Sepsis, unspecified organism (principal); J69.0 Pneumonitis due to inhalation of food and vomit; J96.01 Acute respiratory failure with hypoxia; E43 Unspecified severe protein-calorie malnutrition; N17.9 Acute kidney failure, unspecified; E87.0 Hyperosmolality and hypernatremia; Z68.1 Body mass index [BMI] 19.9 or less, adult; F03.90 Unspecified dementia, unspecified severity, without behavioral disturbance, psychotic disturbance, mood disturbance, and anxiety; L89.619 Pressure ulcer of right heel, unspecified stage; L89.629 Pressure ulcer of left heel, unspecified stage; L89.892 Pressure ulcer of other site, stage 2; L89.529 Pressure ulcer of left ankle, unspecified stage; Z66 Do not resuscitate; Z87.891 Personal history of nicotine dependence; Z80.9 Family history of malignant neoplasm, unspecified
CPT/HCPCS: 92610-GN; 97161-GP; 97530-GP; C1751; G8978-GP-CM; G8979-GP-CK; G8996-GN-CJ; G8996-GN-CL; G8997-GN-CI; G8997-GN-CL; G8998-GN-CJ; J1335; J1644; J1650; J1815; J1956; J2543; J2997; J3370; J3480